=== PATIENT | female | born 1955 | race Native Hawaiian/Other Pacific Islander ===

== ENCOUNTER 2022-12-26 14:20 | Emergency (ER) | payer OTHER ==
[~2022-12-26] VITALS: Ht 167.6 cm; Wt 92.1 kg
[~2022-12-26 14:20] MED LIST: ABILIFY MYCITE10 MG PO; ACET-206 PO; AMLODIPINE BESYLATE PO; BENZ1TAB43 PO; BUSP15TAB2 PO; BUSPIRONE5 MG PO; CARB25TA29 PO; CHOL100034 PO; CLON0.1T16 PO; CLONIDINE HYDR0.1 M2 PO; CYAN10009 IM; DIVA250T PO; DIVALPROEX250 MG PO; DIVALPROEX500 MG PO; ESCI10TA PO; FERROUS SULF325 M1 PO; FLUP25IN8 IM; FLUV100T PO; HYDR25CA25 PO; LEVE250T PO; LITH300C3 PO; LITHIUM CARB150 MG PO; MELATONIN MAXIMU5 MG PO; METO50TA27 PO; MILK OF MA400 MG/5 M PO; OLAN10INJ IM; OLANZAPINE10 MG PO; OLANZAPINE5 MG PO; OXCARBAZEPIN300 MG PO; PARO20TA3 PO; QUET100T2 PO; QUET300T PO; RISP1TAB PO; SEROQUEL300 MG PO; TERCONAZOLE0.4 % VAG; TRAZ50TA36 PO; TRAZODONE HYDRO50 MG PO; VITAMIN E400 UNIT PO; ZIPR20CA PO; ZIPR20IN IM; ZIPR80CA PO; [UNRECOGNIZED DRUG - OTHER] PO
[2022-12-26 14:49] LABS: PLATELET COUNT 319 K/uL (152-353)
[2022-12-26 14:57] LABS: POTASSIUM 3.8 mmol/L (3.6-5.2)
[2022-12-26 15:30] VITALS: BP 130/60; TEMP 98.1
[2022-12-26] MEDS ORDERED: PANTOPRAZOLE 40MG TA PO (19:48)
[2022-12-26] MEDS ORDERED: [UNRECOGNIZED DRUG - SUPPLY] ID (19:51)
[2022-12-26] MEDS ORDERED: HALO5TAB10 PO (19:54)
[2022-12-26] MEDS ORDERED: HYDRALAZINE HYD10 MG PO (19:55)
[2022-12-26] MEDS ORDERED: METO25TA2 PO (19:57)
[2022-12-26] MEDS ORDERED: AMLODIPINE BESYLATE PO (19:58)
[2022-12-26] MEDS ORDERED: OMEP40CA PO (19:59)
[2022-12-26] MEDS ORDERED: TRAZ50TA36 PO (20:00)
== END 2022-12-26 15:30 | disposition still patient (30) ==
LOC: ED 14:20
PROVIDERS: Family Medicine
DX: R45.6 Violent behavior (principal); F20.9 Schizophrenia, unspecified; Z02.79 Encounter for issue of other medical certificate
CPT/HCPCS: 80053; 85027; 87635; 93005; 99283; U0003